=== PATIENT | male | born 1960 | race Caucasian/White ===

== ENCOUNTER 2017-03-03 10:26 | Emergency (ER) | payer MEDICAID ==
[~2017-03-03] VITALS: Ht 165.1 cm; Wt 102.0 kg
[2017-03-03 15:20] VITALS: BP 130/85
== END 2017-03-03 15:27 | disposition home or self-care (01) ==
LOC: ER 10:41
DX: H10.9 Unspecified conjunctivitis (principal); I10 Essential (primary) hypertension; Z87.891 Personal history of nicotine dependence
CPT/HCPCS: 99283; Z7610